=== PATIENT | female | born 1940 | race Caucasian/White ===

== ENCOUNTER 2021-11-02 07:10 | Emergency (ER) | payer MEDICARE, OTHER ==
[2021-11-02 07:29] VITALS: BP 168/96; PULSE 93
[2021-11-02 08:10] LABS: CORONAVIRUS COVID-19 NAA POSITIVE (NEGATIVE)
[2021-11-02 08:11] LABS: RESPIRATORY SYNCYTIAL VIR NAA NEGATIVE (NEGATIVE)
== END 2021-11-02 08:39 | disposition home or self-care (01) ==
LOC: VM.ED 07:10
DX: U07.1 COVID-19 (principal); E78.00 Pure hypercholesterolemia, unspecified; I10 Essential (primary) hypertension; Z79.82 Long term (current) use of aspirin; Z79.899 Other long term (current) drug therapy
CPT/HCPCS: 0241U; 99283